=== PATIENT | female | born 1930 | race Caucasian/White ===

== ENCOUNTER 2018-05-11 11:13 | Emergency (ER) | payer OTHER ==
[~2018-05-11] VITALS: Ht 154.9 cm; Wt 61.2 kg
[~2018-05-11 11:13] MED LIST: ARICEPT5 MG; FOLBIC RF TABL1 EACH; MEDROLPACK PO; NAMENDA10 MG; ORPH100T PO; PAXIL20 MG; PERCOCET 5/3251 TAB PO; PROTONIX40 MG; [UNRECOGNIZED DRUG - OTHER]
== END 2018-05-11 13:29 | disposition home or self-care (01) ==
LOC: ER 11:13
DX: M54.5 Low back pain (principal)

== ENCOUNTER 2021-03-24 19:08 | Inpatient (IN) | payer OTHER ==
[~2021-03-24] VITALS: Ht 154.9 cm; Wt 56.7 kg
[2021-03-24] MEDS ORDERED: PEPCID (19:16)
[2021-03-24] MEDS ORDERED: TYLENOL (19:16)
[2021-03-24] MEDS ORDERED: DETROL (19:17)
[2021-03-28] MEDS ORDERED: XARELTO10 MG PO (10:07)
[2021-03-28] MEDS ORDERED: NASAL MIST126 ML NASAL (10:07)
== END 2021-03-28 14:56 | DRG 481 ==
LOC: ER 19:08 → O/R 03-25 11:23 → SURH 03-25 15:39
PROVIDERS: ADMIT Orthopaedic Surgery; ATTEND Orthopaedic Surgery
PROC: 3E0F7SF Introduction of Other Gas into Respiratory Tract, Via Natural or Artificial Opening (ICD-10-PCS; 2021-03-25)
PROC: 0QS606Z Reposition Right Upper Femur with Intramedullary Internal Fixation Device, Open Approach (ICD-10-PCS; principal; 2021-03-26)
PROC: 30233N1 Transfusion of Nonautologous Red Blood Cells into Peripheral Vein, Percutaneous Approach (ICD-10-PCS; 2021-03-26)
DX: S72.141A Displaced intertrochanteric fracture of right femur, initial encounter for closed fracture (principal); D62 Acute posthemorrhagic anemia; W01.0XXA Fall on same level from slipping, tripping and stumbling without subsequent striking against object, initial encounter; Y93.89 Activity, other specified; Y92.018 Other place in single-family (private) house as the place of occurrence of the external cause; Y99.8 Other external cause status; Z20.822 Contact with and (suspected) exposure to COVID-19

== ENCOUNTER → 2021-04-24 09:10 | Outpatient (CLI) | payer OTHER ==
[~2021-04-24 09:10] MED LIST changes: +DETROL; +NASAL MIST126 ML NASAL; +PEPCID; +TYLENOL; +XARELTO10 MG PO
== END | disposition home or self-care (01) ==
LOC: LAB 09:10
PROVIDERS: ATTEND Orthopaedic Surgery
DX: M25.551 Pain in right hip (principal); E21.2 Other hyperparathyroidism; M85.88 Other specified disorders of bone density and structure, other site; E88.89 Other specified metabolic disorders; M81.8 Other osteoporosis without current pathological fracture; E56.1 Deficiency of vitamin K; S72.141A Displaced intertrochanteric fracture of right femur, initial encounter for closed fracture

== ENCOUNTER 2021-05-10 07:34 | Outpatient (CLI) | payer OTHER | END 2021-05-10 07:41 | disposition home or self-care (01) | LOC: RAD 07:34 | PROVIDERS: ATTEND Orthopaedic Surgery | DX: S72.141D Displaced intertrochanteric fracture of right femur, subsequent encounter for closed fracture with routine healing (principal) ==

== ENCOUNTER → 2021-05-15 10:28 | Outpatient (CLI) | payer OTHER | END | disposition home or self-care (01) | LOC: LAB 10:28 | PROVIDERS: ATTEND Orthopaedic Surgery | DX: D64.89 Other specified anemias (principal); E88.89 Other specified metabolic disorders; D68.8 Other specified coagulation defects; N39.0 Urinary tract infection, site not specified; Z22.322 Carrier or suspected carrier of Methicillin resistant Staphylococcus aureus; E13.69 Other specified diabetes mellitus with other specified complication; I49.8 Other specified cardiac arrhythmias; Z76.89 Persons encountering health services in other specified circumstances; I10 Essential (primary) hypertension ==

== ENCOUNTER 2021-05-17 11:45 | Inpatient (IN) | payer OTHER ==
[~2021-05-17] VITALS: Ht 152.4 cm; Wt 56.7 kg
[2021-05-23] MEDS ORDERED: FUSION PLUS CA1 EACH (07:54)
[2021-05-23] MEDS ORDERED: FAMOTIDINE20 MG (07:54)
[2021-05-23] MEDS ORDERED: SERTRALINE HCL50 MG (07:54)
[2021-05-23] MEDS ORDERED: TYLENOL325 MG (07:54)
[2021-05-23] MEDS ORDERED: TOLTERODINE TART2 M1 (07:54)
== END 2021-05-26 19:49 | DRG 467 ==
LOC: O/R 05-23 06:15 → SURH 05-23 07:00 → O/R 05-23 14:34 → SURH 05-24 08:04 → SURG 05-25 13:46
PROVIDERS: ADMIT Orthopaedic Surgery; ATTEND Orthopaedic Surgery
PROC: 0SPA0JZ Removal of Synthetic Substitute from Right Hip Joint, Acetabular Surface, Open Approach (ICD-10-PCS; 2021-05-23)
PROC: 30233N1 Transfusion of Nonautologous Red Blood Cells into Peripheral Vein, Percutaneous Approach (ICD-10-PCS; 2021-05-23)
PROC: 0SRA0JZ Replacement of Right Hip Joint, Acetabular Surface with Synthetic Substitute, Open Approach (ICD-10-PCS; principal; 2021-05-23 07:00)
DX: S72.141K Displaced intertrochanteric fracture of right femur, subsequent encounter for closed fracture with nonunion (principal); T84.84XA Pain due to internal orthopedic prosthetic devices, implants and grafts, initial encounter; D62 Acute posthemorrhagic anemia; M16.11 Unilateral primary osteoarthritis, right hip; Z20.822 Contact with and (suspected) exposure to COVID-19; Z96.641 Presence of right artificial hip joint

== ENCOUNTER 2021-06-07 08:18 | Outpatient (CLI) | payer OTHER ==
[~2021-06-07 08:18] MED LIST changes: +FAMOTIDINE20 MG; +FUSION PLUS CA1 EACH; +SERTRALINE HCL50 MG; +TOLTERODINE TART2 M1; +TYLENOL325 MG
== END 2021-06-07 08:26 | disposition home or self-care (01) ==
LOC: RAD 08:18
PROVIDERS: ATTEND Orthopaedic Surgery
DX: M25.551 Pain in right hip (principal)

== ENCOUNTER 2021-06-29 08:39 | Outpatient (CLI) | payer OTHER | END 2021-06-29 08:48 | disposition home or self-care (01) | LOC: RAD 08:39 | PROVIDERS: ATTEND Orthopaedic Surgery | DX: T84.84XD Pain due to internal orthopedic prosthetic devices, implants and grafts, subsequent encounter (principal) ==

== ENCOUNTER 2021-06-30 12:45 | Outpatient (CLI) | payer OTHER | END 2021-06-30 14:59 | disposition home or self-care (01) | LOC: RAD 12:45 | PROVIDERS: ATTEND Orthopaedic Surgery | DX: M25.561 Pain in right knee (principal); M17.11 Unilateral primary osteoarthritis, right knee ==

== ENCOUNTER 2021-07-03 09:40 | Outpatient (CLI) | payer OTHER | END 2021-07-06 08:34 | disposition home or self-care (01) | LOC: WOUND MED 09:40 | PROVIDERS: ATTEND Specialist | DX: L89.219 Pressure ulcer of right hip, unspecified stage (principal) | CPT/HCPCS: 11042; A4930; A6199; A6219; A6223 ==

== ENCOUNTER 2021-07-06 08:27 | Outpatient (CLI) | payer OTHER | END 2021-07-06 10:00 | disposition home or self-care (01) | LOC: WOUND MED 08:27 | PROVIDERS: ATTEND Specialist | DX: L89.219 Pressure ulcer of right hip, unspecified stage (principal) | CPT/HCPCS: 97602; A4930; A6219; A6223 ==

== ENCOUNTER 2021-07-10 09:43 | Outpatient (CLI) | payer OTHER | END 2021-07-10 10:00 | disposition home or self-care (01) | LOC: WOUND MED 09:43 | PROVIDERS: ATTEND Specialist | DX: L89.219 Pressure ulcer of right hip, unspecified stage (principal) | CPT/HCPCS: 97602; A4930; A6199; A6219; A6223 ==

== ENCOUNTER → 2021-07-13 08:36 | Outpatient (CLI) | payer OTHER | END | disposition home or self-care (01) | LOC: WOUND MED 08:15 | PROVIDERS: ATTEND Specialist | DX: L89.219 Pressure ulcer of right hip, unspecified stage (principal) | CPT/HCPCS: 11042; A4930; A6223 ==

== ENCOUNTER 2021-07-20 09:44 | Outpatient (CLI) | payer OTHER | END 2021-07-20 10:00 | disposition home or self-care (01) | LOC: WOUND MED 09:44 | PROVIDERS: ATTEND Specialist | DX: L89.219 Pressure ulcer of right hip, unspecified stage (principal) | CPT/HCPCS: 11042; A4930; A6219; A6223 ==

== ENCOUNTER 2021-07-26 08:24 | Outpatient (CLI) | payer OTHER | END 2021-07-26 08:34 | disposition home or self-care (01) | LOC: RAD 08:24 | PROVIDERS: ATTEND Orthopaedic Surgery | DX: T84.84XD Pain due to internal orthopedic prosthetic devices, implants and grafts, subsequent encounter (principal) ==

== ENCOUNTER 2021-07-27 09:35 | Outpatient (CLI) | payer OTHER | END 2021-07-27 10:00 | disposition home or self-care (01) | LOC: WOUND MED 09:35 | PROVIDERS: ATTEND Specialist | DX: L89.219 Pressure ulcer of right hip, unspecified stage (principal) | CPT/HCPCS: 11042; A4930; A6219; A6223; A6251 ==

== ENCOUNTER 2021-08-03 11:38 | Outpatient (CLI) | payer OTHER | END 2021-08-03 12:00 | disposition home or self-care (01) | LOC: WOUND MED 11:38 | PROVIDERS: ATTEND Specialist | DX: L89.219 Pressure ulcer of right hip, unspecified stage (principal) | CPT/HCPCS: 11042; A4930; A6219; A6223 ==

== ENCOUNTER 2021-08-07 14:12 | Outpatient (CLI) | payer OTHER | END 2021-08-07 14:13 | disposition home or self-care (01) | LOC: WOUND MED 14:12 | PROVIDERS: ATTEND Specialist | DX: L89.219 Pressure ulcer of right hip, unspecified stage (principal) | CPT/HCPCS: 97602; A4930; A6219; A6223 ==

== ENCOUNTER 2021-08-14 12:03 | Outpatient (CLI) | payer OTHER | END 2021-08-14 12:30 | disposition home or self-care (01) | LOC: WOUND MED 12:03 | PROVIDERS: ATTEND Specialist | DX: L89.219 Pressure ulcer of right hip, unspecified stage (principal) | CPT/HCPCS: 11042; A4930; A6219; A6223 ==

== ENCOUNTER 2021-08-21 11:17 | Outpatient (CLI) | payer OTHER | END 2021-08-21 11:42 | disposition home or self-care (01) | LOC: WOUND MED 11:17 | PROVIDERS: ATTEND Specialist | DX: L89.219 Pressure ulcer of right hip, unspecified stage (principal) | CPT/HCPCS: 11042; A4930; A6199; A6219; A6223 ==

== ENCOUNTER 2021-08-24 08:21 | Outpatient (CLI) | payer OTHER | END 2021-08-24 11:42 | disposition home or self-care (01) | LOC: WOUND MED 08:21 | PROVIDERS: ATTEND Specialist | DX: L89.219 Pressure ulcer of right hip, unspecified stage (principal) | CPT/HCPCS: 11042; A4930; A6219; A6223; A6251 ==

== ENCOUNTER 2021-08-24 08:44 | Outpatient (CLI) | payer OTHER | END 2021-08-24 08:51 | disposition home or self-care (01) | LOC: RAD 08:44 | PROVIDERS: ATTEND Orthopaedic Surgery | DX: T84.84XD Pain due to internal orthopedic prosthetic devices, implants and grafts, subsequent encounter (principal) ==

== ENCOUNTER 2021-08-28 11:36 | Outpatient (CLI) | payer OTHER | END 2021-08-28 15:16 | disposition home or self-care (01) | LOC: WOUND MED 11:36 | PROVIDERS: ATTEND Specialist | DX: L89.219 Pressure ulcer of right hip, unspecified stage (principal) | CPT/HCPCS: 11042; A4930; A6219; A6223 ==

== ENCOUNTER 2021-09-04 11:15 | Outpatient (CLI) | payer OTHER | END 2021-09-04 12:00 | disposition home or self-care (01) | LOC: WOUND MED 11:15 | PROVIDERS: ATTEND Specialist | DX: L97.112 Non-pressure chronic ulcer of right thigh with fat layer exposed (principal) | CPT/HCPCS: 11042; A4930; A6219; A6223 ==

== ENCOUNTER 2021-09-07 14:33 | Outpatient (CLI) | payer OTHER | END 2021-09-07 15:00 | disposition home or self-care (01) | LOC: WOUND MED 14:33 | PROVIDERS: ATTEND Specialist | DX: L97.112 Non-pressure chronic ulcer of right thigh with fat layer exposed (principal) | CPT/HCPCS: 97602; A4930; A6219; A6223 ==

== ENCOUNTER 2021-09-11 11:01 | Outpatient (CLI) | payer OTHER | END 2021-09-11 12:00 | disposition home or self-care (01) | LOC: WOUND MED 11:01 | PROVIDERS: ATTEND Specialist | DX: L97.112 Non-pressure chronic ulcer of right thigh with fat layer exposed (principal) | CPT/HCPCS: 11042; A4930; A6219; A6223; A6251 ==

== ENCOUNTER 2021-09-18 11:35 | Outpatient (CLI) | payer OTHER | END 2021-09-18 12:00 | disposition home or self-care (01) | LOC: WOUND MED 11:35 | PROVIDERS: ATTEND Specialist | DX: L97.112 Non-pressure chronic ulcer of right thigh with fat layer exposed (principal) | CPT/HCPCS: 11042; A4930; A6219; A6223; A6251 ==

== ENCOUNTER 2021-09-20 09:19 | Outpatient (CLI) | payer OTHER | END 2021-09-20 09:24 | disposition home or self-care (01) | LOC: LAB 09:19 | PROVIDERS: ATTEND Orthopaedic Surgery | DX: E55.9 Vitamin D deficiency, unspecified (principal); M85.9 Disorder of bone density and structure, unspecified; E21.3 Hyperparathyroidism, unspecified; E88.9 Metabolic disorder, unspecified; M81.8 Other osteoporosis without current pathological fracture ==

== ENCOUNTER 2021-09-21 14:18 | Outpatient (CLI) | payer OTHER | END 2021-09-21 14:44 | disposition home or self-care (01) | LOC: WOUND MED 14:18 | PROVIDERS: ATTEND Specialist | DX: L97.112 Non-pressure chronic ulcer of right thigh with fat layer exposed (principal) | CPT/HCPCS: 97602; A4930; A6199; A6219; A6223 ==

== ENCOUNTER 2021-09-28 10:59 | Outpatient (CLI) | payer OTHER | END 2021-09-28 14:41 | disposition home or self-care (01) | LOC: WOUND MED 10:59 | PROVIDERS: ATTEND Specialist | DX: L97.112 Non-pressure chronic ulcer of right thigh with fat layer exposed (principal) | CPT/HCPCS: 11042; A4930; A6199; A6219; A6223 ==

== ENCOUNTER 2021-10-05 11:09 | Outpatient (CLI) | payer OTHER | END 2021-10-05 12:00 | disposition home or self-care (01) | LOC: WOUND MED 11:09 | PROVIDERS: ATTEND Specialist | DX: L97.112 Non-pressure chronic ulcer of right thigh with fat layer exposed (principal) | CPT/HCPCS: 11042; A4930; A6219; A6223 ==

== ENCOUNTER 2021-10-09 14:27 | Outpatient (CLI) | payer OTHER | END 2021-10-09 16:00 | disposition home or self-care (01) | LOC: WOUND MED 14:27 | PROVIDERS: ATTEND Specialist | DX: L97.112 Non-pressure chronic ulcer of right thigh with fat layer exposed (principal) | CPT/HCPCS: 97602; A4930; A6199; A6219; A6223 ==

== ENCOUNTER 2021-10-16 14:20 | Outpatient (CLI) | payer OTHER | END 2021-10-16 15:00 | disposition home or self-care (01) | LOC: WOUND MED 14:20 | PROVIDERS: ATTEND Specialist | DX: L97.112 Non-pressure chronic ulcer of right thigh with fat layer exposed (principal) | CPT/HCPCS: 97602; A4930; A6199; A6219; A6223 ==

== ENCOUNTER 2021-10-23 11:00 | Outpatient (CLI) | payer OTHER | END 2021-10-23 14:41 | disposition home or self-care (01) | LOC: WOUND MED 11:00 | PROVIDERS: ATTEND Specialist | DX: T81.42XD Infection following a procedure, deep incisional surgical site, subsequent encounter (principal) | CPT/HCPCS: 11042; A4930; A6219; A6223 ==

== ENCOUNTER 2021-10-26 13:26 | Outpatient (CLI) | payer OTHER | END 2021-10-26 15:00 | disposition home or self-care (01) | LOC: WOUND MED 13:26 | PROVIDERS: ATTEND Specialist | DX: T81.42XD Infection following a procedure, deep incisional surgical site, subsequent encounter (principal) | CPT/HCPCS: 97602; A4930; A6219; A6223; A6251 ==

== ENCOUNTER 2021-11-02 11:10 | Outpatient (CLI) | payer OTHER | END 2021-11-02 13:00 | disposition home or self-care (01) | LOC: WOUND MED 11:10 | PROVIDERS: ATTEND Specialist | DX: T81.33XD Disruption of traumatic injury wound repair, subsequent encounter (principal) | CPT/HCPCS: 11042; A4930; A6219; A6223; A6251 ==

== ENCOUNTER 2021-11-17 11:25 | Outpatient (CLI) | payer OTHER | END 2021-11-17 12:00 | disposition home or self-care (01) | LOC: WOUND MED 11:25 | PROVIDERS: ATTEND Specialist | DX: L97.112 Non-pressure chronic ulcer of right thigh with fat layer exposed (principal) ==

== ENCOUNTER 2021-12-04 11:09 | Outpatient (CLI) | payer OTHER | END 2021-12-04 12:00 | disposition home or self-care (01) | LOC: WOUND MED 11:09 | PROVIDERS: ATTEND Specialist | DX: T81.30XD Disruption of wound, unspecified, subsequent encounter (principal); Y83.9 Surgical procedure, unspecified as the cause of abnormal reaction of the patient, or of later complication, without mention of misadventure at the time of the procedure | CPT/HCPCS: 11042; A4927; A6219; A6223 ==

== ENCOUNTER 2021-12-14 10:59 | Outpatient (CLI) | payer OTHER | END 2021-12-14 11:00 | disposition home or self-care (01) | LOC: WOUND MED 10:59 | PROVIDERS: ATTEND Specialist | DX: L97.112 Non-pressure chronic ulcer of right thigh with fat layer exposed (principal); T81.30XA Disruption of wound, unspecified, initial encounter | CPT/HCPCS: 11042; A4927; A6219; A6223; A6251 ==

== ENCOUNTER 2021-12-18 07:38 | Outpatient (CLI) | payer OTHER | END 2021-12-18 09:15 | disposition home or self-care (01) | LOC: NUCLEAR 07:38 | PROVIDERS: ATTEND Specialist | DX: I73.9 Peripheral vascular disease, unspecified (principal) ==

== ENCOUNTER 2021-12-21 08:21 | Outpatient (CLI) | payer OTHER | END 2021-12-21 08:22 | disposition home or self-care (01) | LOC: NUCLEAR 08:21 | PROVIDERS: ATTEND Specialist | DX: I87.2 Venous insufficiency (chronic) (peripheral) (principal); Z88.2 Allergy status to sulfonamides; Z88.8 Allergy status to other drugs, medicaments and biological substances ==

== ENCOUNTER 2021-12-21 08:35 | Outpatient (CLI) | payer OTHER | END 2021-12-21 10:00 | disposition home or self-care (01) | LOC: WOUND MED 08:35 | PROVIDERS: ATTEND Specialist | DX: L97.112 Non-pressure chronic ulcer of right thigh with fat layer exposed (principal); T81.33XA Disruption of traumatic injury wound repair, initial encounter | CPT/HCPCS: 11042; A4927; A6219; A6223 ==

== ENCOUNTER 2021-12-25 14:29 | Outpatient (CLI) | payer OTHER | END 2021-12-25 14:30 | disposition home or self-care (01) | LOC: WOUND MED 14:29 | PROVIDERS: ATTEND Specialist | DX: L97.112 Non-pressure chronic ulcer of right thigh with fat layer exposed (principal) | CPT/HCPCS: 97602; A4927; A6219; A6223; A6251 ==

== ENCOUNTER 2021-12-28 10:45 | Outpatient (CLI) | payer OTHER | END 2021-12-28 14:55 | disposition home or self-care (01) | LOC: WOUND MED 10:45 | PROVIDERS: ATTEND Specialist | DX: T81.30XA Disruption of wound, unspecified, initial encounter (principal) | CPT/HCPCS: 11042; A4927; A6223 ==

== ENCOUNTER 2022-01-04 11:15 | Outpatient (CLI) | payer OTHER | END 2022-01-04 11:16 | disposition home or self-care (01) | LOC: WOUND MED 11:15 | PROVIDERS: ATTEND Specialist | DX: L97.112 Non-pressure chronic ulcer of right thigh with fat layer exposed (principal) | CPT/HCPCS: 11042; A4927; A6223 ==

== ENCOUNTER 2022-01-18 10:50 | Outpatient (CLI) | payer OTHER | END 2022-01-18 11:00 | disposition home or self-care (01) | LOC: WOUND MED 10:50 | PROVIDERS: ATTEND Specialist | DX: L97.112 Non-pressure chronic ulcer of right thigh with fat layer exposed (principal) | CPT/HCPCS: 11042; A4927; A6223 ==

== ENCOUNTER 2022-02-06 10:47 | Outpatient (CLI) | payer OTHER | END 2022-02-06 14:33 | disposition home or self-care (01) | LOC: WOUND MED 10:47 | PROVIDERS: ATTEND Specialist | DX: L98.492 Non-pressure chronic ulcer of skin of other sites with fat layer exposed (principal) | CPT/HCPCS: 11042; A4927; A6223; A6251 ==

== ENCOUNTER 2022-02-07 09:00 | Outpatient (CLI) | payer OTHER | END 2022-02-07 09:15 | disposition home or self-care (01) | LOC: RAD 09:00 | PROVIDERS: ATTEND Orthopaedic Surgery | DX: M25.551 Pain in right hip (principal) ==

== ENCOUNTER 2022-02-13 13:50 | Outpatient (CLI) | payer OTHER | END 2022-02-13 13:52 | disposition home or self-care (01) | LOC: WOUND MED 13:50 → WOUND CARE 13:50 → WOUND MED 13:52 | PROVIDERS: ATTEND Specialist | DX: L97.112 Non-pressure chronic ulcer of right thigh with fat layer exposed (principal) | CPT/HCPCS: 11042; A4927; A6219; A6223; A6251 ==

== ENCOUNTER 2022-02-20 11:00 | Outpatient (CLI) | payer OTHER | END 2022-02-20 11:30 | disposition home or self-care (01) | LOC: WOUND MED 11:00 | PROVIDERS: ATTEND Specialist | DX: L98.492 Non-pressure chronic ulcer of skin of other sites with fat layer exposed (principal) | CPT/HCPCS: 11042; A4927; A6219; A6223; A6251 ==

== ENCOUNTER 2022-03-01 10:57 | Outpatient (CLI) | payer OTHER | END 2022-03-01 11:30 | disposition home or self-care (01) | LOC: WOUND MED 10:57 | PROVIDERS: ATTEND Specialist | DX: L97.112 Non-pressure chronic ulcer of right thigh with fat layer exposed (principal) | CPT/HCPCS: 11042; A4927; A6219; A6223; A6251 ==

== ENCOUNTER 2022-03-08 10:50 | Outpatient (CLI) | payer OTHER | END 2022-03-08 12:00 | disposition home or self-care (01) | LOC: WOUND MED 10:50 | PROVIDERS: ATTEND Specialist | DX: L97.112 Non-pressure chronic ulcer of right thigh with fat layer exposed (principal) | CPT/HCPCS: 11042; A4927; A6219; A6223 ==

== ENCOUNTER 2022-03-15 11:02 | Outpatient (CLI) | payer OTHER | END 2022-03-15 12:00 | disposition home or self-care (01) | LOC: WOUND MED 11:02 | PROVIDERS: ATTEND Specialist | DX: L97.112 Non-pressure chronic ulcer of right thigh with fat layer exposed (principal) | CPT/HCPCS: 11042; A4927; A6219; A6223; A6251 ==

== ENCOUNTER 2022-03-20 11:18 | Outpatient (CLI) | payer OTHER | END 2022-03-20 11:20 | disposition home or self-care (01) | LOC: WOUND MED 11:18 | PROVIDERS: ATTEND Specialist | DX: L97.112 Non-pressure chronic ulcer of right thigh with fat layer exposed (principal) | CPT/HCPCS: A4927; A6219; A6223; A6251; G0463 ==

== ENCOUNTER 2022-03-20 13:27 | Outpatient (CLI) | payer OTHER | END 2022-03-20 14:00 | disposition home or self-care (01) | LOC: RAD 13:27 | PROVIDERS: ATTEND Orthopaedic Surgery | DX: M79.651 Pain in right thigh (principal) ==

== ENCOUNTER 2022-03-27 11:40 | Outpatient (CLI) | payer OTHER | END 2022-03-27 14:53 | disposition home or self-care (01) | LOC: WOUND MED 11:40 | PROVIDERS: ATTEND Specialist | DX: L97.112 Non-pressure chronic ulcer of right thigh with fat layer exposed (principal) | CPT/HCPCS: 11042; A4927; A6222; A6223 ==

== ENCOUNTER 2022-04-03 11:18 | Outpatient (CLI) | payer OTHER | END 2022-04-03 12:00 | disposition home or self-care (01) | LOC: WOUND MED 11:18 | PROVIDERS: ATTEND Specialist | DX: L97.112 Non-pressure chronic ulcer of right thigh with fat layer exposed (principal) | CPT/HCPCS: 11042; A4927; A6199; A6219; A6223 ==

== ENCOUNTER 2022-04-12 11:55 | Outpatient (CLI) | payer OTHER | END 2022-04-12 14:16 | disposition home or self-care (01) | LOC: WOUND MED 11:55 | PROVIDERS: ATTEND Specialist | DX: L97.112 Non-pressure chronic ulcer of right thigh with fat layer exposed (principal) | CPT/HCPCS: 11042; A4927; A6219; A6223 ==

== ENCOUNTER 2022-04-17 10:54 | Outpatient (CLI) | payer OTHER | END 2022-04-17 10:55 | disposition home or self-care (01) | LOC: WOUND MED 10:54 | PROVIDERS: ATTEND Specialist | DX: L97.112 Non-pressure chronic ulcer of right thigh with fat layer exposed (principal) ==

== ENCOUNTER 2022-04-26 11:20 | Outpatient (CLI) | payer OTHER | END 2022-04-26 11:30 | disposition home or self-care (01) | LOC: WOUND MED 11:20 | PROVIDERS: ATTEND Specialist | DX: L97.112 Non-pressure chronic ulcer of right thigh with fat layer exposed (principal) ==

== ENCOUNTER 2022-05-03 10:48 | Outpatient (CLI) | payer OTHER | END 2022-05-03 11:00 | disposition home or self-care (01) | LOC: WOUND MED 10:48 | PROVIDERS: ATTEND Specialist | DX: L97.122 Non-pressure chronic ulcer of left thigh with fat layer exposed (principal) | CPT/HCPCS: 11042; A4927; A6219; A6223 ==

== ENCOUNTER 2022-05-17 11:19 | Outpatient (CLI) | payer OTHER | END 2022-05-17 14:20 | disposition home or self-care (01) | LOC: WOUND MED 11:19 | PROVIDERS: ATTEND Specialist | DX: L97.112 Non-pressure chronic ulcer of right thigh with fat layer exposed (principal) | CPT/HCPCS: 11042; A4927; A6219; A6223; A6251; G0463 ==

== ENCOUNTER 2022-05-31 11:01 | Outpatient (CLI) | payer OTHER | END 2022-05-31 11:30 | disposition home or self-care (01) | LOC: WOUND MED 11:01 | PROVIDERS: ATTEND Specialist | DX: L97.112 Non-pressure chronic ulcer of right thigh with fat layer exposed (principal) | CPT/HCPCS: 11042; A4927; A6219; A6223; G0463 ==